=== PATIENT | female | born 2000 | race Caucasian/White ===

== ENCOUNTER 2022-07-27 08:29 | Emergency (ER) | payer MEDICAID ==
[~2022-07-27] VITALS: Ht 172.7 cm; Wt 74.6 kg
[2022-07-27 08:36] VITALS: BP 110/70
--- NOTE | 2022-07-27 08:43 | NUR ---
PT AMB TO BED 2
[2022-07-27] MEDS ORDERED: PHEN26CR2 RC (08:53)
--- NOTE | 2022-07-27 09:07 | NUR ---
Patient discharged with v/s stable. Written and verbal after care instructions given and explained. Patient alert, oriented and verbalized understanding of instructions. Ambulatory with steady gait. All questions addressed prior to discharge. ID band removed. Patient advised to follow up with PMD. Rx of PREPARATION H given. Patient educated on indication of medication including possible reaction and side effects. Opportunity to ask questions provided and answered.
[2022-07-27] MEDS ORDERED: DOCU-299 PO (09:10)
== END 2022-07-27 09:07 | disposition home or self-care (01) ==
LOC: MED 08:29
DX: K64.4 Residual hemorrhoidal skin tags (principal); Z79.899 Other long term (current) drug therapy
CPT/HCPCS: 99282